=== PATIENT | female | born 1975 | race Caucasian/White ===

== ENCOUNTER → 2016-06-16 | Day surgery (SDC) | payer BC ==
[2016-06-05 12:52] VITALS: BMI 41.0
--- NOTE | 2016-06-05 13:23 | PAT Medication Instructions ---
Service Date Jun 05, 2016. Current Home Medication List Acetaminophen (Tylenol), 650-975 MG PO PRN Ferrous Sulfate (Slow Fe), 1 TAB PO QAM Medication Instructions For Your Scheduled Surgery - Hold the following medications the morning of surgery: Ferrous Sulfate (Slow Fe), 1 TAB PO QAM - Take the following medications the morning of surgery with a sip of water: Acetaminophen (Tylenol), 650-975 MG PO PRN - Take the following medications as scheduled the night before surgery: Acetaminophen (Tylenol), 650-975 MG PO PRN If you have any questions please call us at [phone] or [phone] ( [place]) or [phone]
[2016-06-05 14:10] LABS: BASO % 0.6 %; BASO ABS # 0.04 K/uL (0-0.2); COMPLETE YES; EOS % 3.7 %; HEMATOCRIT 39.1 % (37-47); IG% 0.2 %; LYMPH % 25.3 %; LYMPH ABS # 1.58 K/uL (1.2-3.4); MEAN CELL VOLUME 88.3 fL (80-100); MEAN CORPUSCULAR HEMOGLOBIN 29.6 pg (25-34); MEAN CORPUSCULAR HGB CONC 33.5 g/dl (32-36); MEAN PLATELET VOLUME 11.3 fL (7.4-10.4); MONO % 7.1 %; NEUT % 63.1 %; PLATELET COUNT 264 K/uL (130-400); RED BLOOD COUNT 4.43 M/uL (4.2-5.4); WHITE BLOOD COUNT 6.24 K/uL (4.8-10.8)
[2016-06-05 14:49] LABS: BUN/CREATININE RATIO 11.8 (10-20); CALCIUM 8.7 mg/dl (8.5-10.1); CREATININE 0.61 mg/dl (0.60-1.20); POTASSIUM 4.3 mmol/L (3.5-5.1)
[~2016-06-16] VITALS: Ht 167.6 cm; Wt 114.9 kg
[~2016-06-16] MED LIST: ACET-1311 PO; ACETAMINOPHEN 1000 MG/100 ML IV IV ONE; ATROPINE SULFATE 0.1 MG/ML 5ML SYR IV PRN; CHECK SCOPOLAMINE PATCH PLACEMENT SCH; DEXAMETHASONE SOD INJ 4 MG/ML VIAL ONE; EpHEDrine SULFATE INJ 50 MG/ML AMP IV PRN; FENTANYL CITRATE INJ 50 MCG/1 ML 2 ML VIAL IV PRN; FENTANYL CITRATE INJ 50 MCG/1 ML 2 ML VIAL ONE; FERR142T PO; FLUMAZENIL 0.1 MG/1 ML 10 ML VIAL IV PRN; IBUP600T44 PO; IBUPROFEN 600 MG TAB PO PRN; KETOROLAC TROMETHAMINE 30 MG/ML VIAL IV. PRN; LABETALOL HCL IV 5 MG/ML 20ML IV PRN; LACTATED RINGER'S 1000ML 1,000 ML IV SCH; LACTATED RINGER'S 1000ML IV SCH; LIDOCAINE HCL 2% 2 ML VIAL (20MG/ML) ONE; MEPERIDINE HCL 25 MG/ML CARP IV PRN; MIDAZOLAM HCL 1 MG/ML 2ML VIAL ONE; NALOXONE HCL 0.4 MG/1 ML VIAL/CARP IV PRN; NURSING VERBAL MED ORDER ONE; ONDANSETRON INJ 2 MG/ML 2 ML VIAL IV PRN; ONDANSETRON INJ 2 MG/ML 2 ML VIAL ONE; PHENYLEPHRINE 100MCG/ML 5ML SYR IV PRN; PROMETHAZINE HCL INJ 25 MG in SODIUM CHLORIDE 0.9% 50ML 50 ML IV ONE; PROPOFOL IV EMULSION 10 MG/ML 20 ML VIAL IV ONE; SCOPOLAMINE 1.5 MG TDSY TD SCH; SODIUM CHLORIDE 0.9% 1000ML 1,000 ML IV SCH
[2016-06-16 05:48] VITALS: BP 111/68; PULSE 62; TEMP 36.9; O2SAT 96; Ht 167.6 cm; Wt 114.9 kg
--- NOTE | 2016-06-16 07:00 | History & Physical Bridge Note ---
H&P Re-Evaluation Bridge Note: I have examined the patient, reviewed the History & Physical and in the interval since the performance of the History & Physical I have noted the following changes of clinical significance: No changes noted
--- NOTE | 2016-06-16 07:50 | Discharge Instructions ---
Discharge Instructions Date of Service Jun 16, 2016. Visit Reason for Visit: Heavy Menstrual Bleeding Discharge Discharge Diagnosis / Problem: heavy menstrual bleeding, s/p endometrial ablation Discharge Goals Goal(s): Decrease discomfort Activity Recommendations Activity Limitations: per Instructions/Follow-up section Anesthesia . Post Anesthesia Instructions: If you have had General Anesthesia or IV Sedation: * Do not drive today. * Resume driving when surgeon permits. * Do not make important decisions or sign legal documents today. * Call surgeon for: 1. Temperature elevations greater than 101 degrees F. 2. Uncontrollable pain. 3. Excessive bleeding. 4. Persistent nausea and vomiting. 5. Medication intolerance (nausea, vomiting or rash). * For nausea and vomiting use only clear liquids such as: tea, soda, bouillon until nausea subsides, then gradually increase diet as tolerated. * If you have any concerns or questions, call your surgeon's office. If physician is unavailable and it is an emergency, call 911 or go to the nearest emergency room. . Instructions / Follow-Up Instructions / Follow-Up ACTIVITY RECOMMENDATIONS: * Avoid tampons, douching, hot tubs, pools, and intercourse until bleeding has stopped. * May shower as usual. * No strenuous activity for 24-48 hours. After 24-48 hours, you can do anything you feel like doing (driving and sports are okay). RETURN TO SCHOOL/WORK: * You may return to school or work after 24 hours unless specified by your physician. DIET: * Resume previous diet. MEDICATIONS: Resume previous medications unless instructed otherwise by your surgeon. Ibuprofen 200mg 2-3 tablets every 4-6 hours as needed --OR-- Aleve 2 tablets every 8-12 hours as needed for post-operative discomfort Medications are over the counter. Tylenol may be used if above medications are contraindicated or not preferred. Medication should be taken with food or milk. do not take on an empty stomach. SPECIAL CARE INSTRUCTIONS: * Check temperature twice daily for one week. Report any elevation over 101 degrees. * Call office if you experience increased pelvic pain or discomfort not relieved by pain medicine, if you have foul smelling vaginal discharge, if you have bleeding that is heavier than a normal menstrual flow. If you are changing a maxi pad every 1- 2 hours, this is too heavy. vaginal spotting is normal for 1-2 weeks. FOLLOW UP VISIT: Call your doctor's office for a post-operative visit. Diet Recommendations Recommended Home Diet: no limitations, resume previous diet Procedures Procedures Performed: Dilitation, currettage, hysteroscopy with novasure ablation. Pending Studies Studies pending at discharge: no Medical Emergencies . Who to Call and When: Medical Emergencies: If at any time you feel your situation is an emergency, please call 911 immediately. . Non-Emergent Contact Non-Emergency issues call your: Primary Care Provider, Court Usher . . "Provider Documentation" section prepared by Jayant Mi.
--- NOTE | 2016-06-16 07:54 | [facility] Post Operative Brief Note ---
Immediate Operative Summary Operative Date Jun 16, 2016. Pre-Operative Diagnosis Heavy menstural bleeding. Post-Operative Diagnosis Same as preop. Procedure(s) Performed Dilitation, currettage, hysteroscopy with novasure ablation. Surgeon Dr. Mi Edger Runner Surgeon(s) None Estimated Blood Loss 10 ml Findings Upon bimanual exam uterus was anteverted at midline and freely mobile. Bilateral adnexa clear to palpation. Uterus sounded to 9.5 cm. Upon hysteroscopic exam bilateral tubal ostia clearly visualized. Normal endometrium noted with no submucosal fibroids or obvious polyps note. A moderate amount of tissue was obtained upon sharp curettage and sent to pathology. Novasure endometrial ablation was performed with setting of 5.5 cm for cavity length and 4.7 cm for cavity width. Ablation was performed for 1 minute 26 seconds at a power of 142 spaulding. A second hysteroscopic exam was performed noting an excellent endometrial burn with no incidental uterine perforation or injury noted. The patient tolerated the procedure well and was sent to recovery with stable vital signs. Fluids (cc crystalloids) 900 Specimens A: Endometrial ablation. Drains None Anesthesia General LMA Complication(s) None Disposition Recovery Room / PACU
--- NOTE | 2016-06-16 08:09 | OPERATIVE REPORT ---
DATE OF OPERATION: 06/16/2016 PREOPERATIVE DIAGNOSES: Heavy menstrual bleeding. POSTOPERATIVE DIAGNOSES: Same. OPERATIVE PROCEDURE: Dilation and curettage, hysteroscopy and NovaSure endometrial ablation. SURGEON: Dr. Mi. REGISTERED NURSE AMBULATORY: None. ANESTHESIA: General LMA. ESTIMATED BLOOD LOSS: 10 mL. IV FLUIDS: 900 mL crystalloids. URINE OUTPUT: 50 mL clear yellow urine. SPECIMENS: Endometrial curettings to pathology. DRAINS: None. COMPLICATIONS: None. DISPOSITION: Recovery room. OPERATIVE FINDINGS: Upon bimanual exam, uterus was anteverted at midline and freely mobile. Bilateral adnexa were clear to palpation. Uterus sounded to 9.5 cm, cervical length was 4.0 cm. Upon hysteroscopic exam bilateral tubal ostia were clearly visualized. Normal endometrium noted with no submucosal fibroids or obvious polyps noted. A moderate amount of tissue was obtained upon sharp curettage and sent to pathology. The NovaSure endometrial ablation was then performed with settings of 5.5 cm for cavity length and 4.7 cm for cavity width. Endometrial ablation was then performed for 1 minute 26 seconds at a power 142 spaulding. Once the ablation was completed, a second hysteroscopic exam was performed noting an excellent endometrial burn with no incidental uterine perforation or injury noted. The patient tolerated the procedure well and was sent to recovery with stable vital signs. OPERATIVE PROCEDURE IN DETAIL: The patient was taken to the operating room where general anesthesia was administered. Once anesthesia was found to be adequate, the patient was placed in the dorsal lithotomy position and was prepped and draped in a manner appropriate for the procedure. A bimanual examination was then performed. The bladder was then drained of clear yellow urine. A weighted speculum was then placed into the vagina and the anterior lip of the cervix was grasped with a single tooth tenaculum. The cervix was then dilated using Krystal dilators and the uterus was then sounded to 9.5 cm. A hysteroscope was then introduced into the uterine cavity and a thorough examination was then performed noting no submucosal fibroids or polyps noted. Bilateral tubal ostia were clearly visualized. At this point, the hysteroscope was then removed and utilizing a medium Carmichael curette a thorough curettage of the cavity was performed obtaining a moderate amount of endometrial tissue, which was sent to pathology. At this point, the NovaSure endometrial ablation tool was then assembled with settings of 5.5 cm for cavity length and 4.7 cm for cavity width. The NovaSure was then introduced into the cavity and ablation was performed for 1 minute 26 seconds at a power of 142 spaulding according to NovaSure protocol. Once the ablation was then completed, the NovaSure tool was removed and the hysteroscope was reintroduced into the endometrial cavity and a second hysteroscopic exam was performed noting an excellent endometrial burn with no incidental uterine perforation or injury noted. At this point, the procedure was found to be complete. The hysteroscope was then removed along with the rest of the instruments. Excellent hemostasis was noted. All sponge and instrument counts were found to be correct x2. The patient tolerated the procedure well and was sent to recovery with stable vital signs. I attest to the content of the Intraoperative Record and any orders documented therein. Any exceptio ns are noted below.
[2016-06-16 08:45] VITALS: BP 120/71; PULSE 64; TEMP 36.8; O2SAT 97
--- NOTE | 2016-06-16 08:46 | Anesthesiology Progress Note ---
Anesthesia Post Op Note Date & Time Jun 16, 2016 at 08:45 Vital Signs Pain Intensity: 0 Vital Signs Past 12 Hours Date Time Temp Pulse Resp B/P Pulse Ox O2 Delivery O2 Flow Rate FiO2 06/16/16 08:37 65 17 06/16/16 08:37 65 17 93 06/16/16 08:35 125/74 06/16/16 08:32 71 15 96 06/16/16 08:32 69 15 06/16/16 08:30 112/71 06/16/16 08:30 36.4 63 16 125/74 95 Room Air 06/16/16 08:27 71 17 92 06/16/16 08:27 71 17 06/16/16 08:25 112/75 06/16/16 08:22 65 16 97 06/16/16 08:22 66 16 06/16/16 08:20 113/70 06/16/16 08:17 60 14 06/16/16 08:17 60 14 100 06/16/16 08:16 63 15 100 06/16/16 08:16 62 15 06/16/16 08:15 121/70 06/16/16 08:11 67 16 100 06/16/16 08:11 67 16 06/16/16 08:10 116/60 06/16/16 08:07 36.0 78 18 122/79 99 Mask 10 06/16/16 08:06 74 17 96 06/16/16 08:06 75 17 06/16/16 08:05 122/78 06/16/16 08:01 80 16 100 06/16/16 08:01 78 16 06/16/16 08:00 126/88 06/16/16 07:57 122/79 06/16/16 07:56 79 21 06/16/16 07:56 79 21 99 06/16/16 05:48 36.9 62 18 111/68 96 Room Air Notes Mental Status: alert / awake / arousable, participated in evaluation Pt Amnestic to Procedure: Yes Nausea / Vomiting: adequately controlled, improving with treatment Pain: adequately controlled Airway Patency, RR, SpO2: stable & adequate BP & HR: stable & adequate Hydration State: stable & adequate Anesthetic Complications: no major complications apparent
[2016-06-16 09:32] VITALS: BP 115/62; PULSE 70; TEMP 36.8; O2SAT 99
== END | disposition home or self-care (01) ==
LOC: C.ACU 05:12
PROVIDERS: ATTEND Obstetrics & Gynecology
DX: N92.0 Excessive and frequent menstruation with regular cycle (principal); G43.909 Migraine, unspecified, not intractable, without status migrainosus; E11.9 Type 2 diabetes mellitus without complications; D64.9 Anemia, unspecified; Z98.890 Other specified postprocedural states